=== PATIENT | female | born 1945 | race Caucasian/White ===

== ENCOUNTER 2019-05-16 06:56 | Day surgery (SDC) | payer OTHER, MEDICARE, SELFPAY ==
[2019-05-16] MEDS: PROPARACAINE 0.5% OPHTH SOL 2 DROPS EYE-OP (07:38)
[2019-05-16] MEDS: CATARACT EYE COMPOUND (10 DROPS/SYRINGE) 3 DROPS EYE-OP (07:40)
[2019-05-16 07:41] VITALS: BP 155/71; PULSE 60; RESP 16; TEMP 36.6; O2SAT 100; BMI 33.7
--- NOTE | 2019-05-16 08:08 | PM.PREOP ---
Pre-operative Note Interval Note History & Physical reviewed/Exam performed by Physician: No Changes to H&P: No
--- NOTE | 2019-05-16 08:08 | PM.OP.1 ---
Operative Date/Time/Diagnoses Pre-op diagnosis: Nuclear cataract right eye Procedure & Clinicians Procedure: Cataract Surgery Same procedure as scheduled: Yes Surgeon: Candelario Arzate Anesthesia Type: MAC +/- and Sedation Operative Notes Procedure in detail: Patient brought to the operating suite. Tetracaine drops placed in the right eye. Patient was prepped and draped in sterile manner. Wire lid speculum was placed in the eye. Betadine drops were placed on the eye. This was irrigated. Lidocaine jelly was placed on the eye. A paracentesis port was created with a side-port blade. 0.1 mL 1% preservative free lidocaine was injected into the anterior chamber. The anterior chamber was deepened with viscoelastic. 2.6 mm keratome was used to create a temporal clear corneal incision. Cystotome and Utrata forceps were used to create continuous tear capsulorrhexis. Balanced salt solution was used to hydro dissect the nucleus. The phacoemulsification handpiece was inserted and the nucleus was removed using the stop and chop technique. The irrigation aspiration handpiece was inserted and the remaining cortex was removed. Anterior chamber was deepened with viscoelastic. An Mustafa ZCB00 intraocular lens with a power of 23.5 was injected into the capsular bag. Irrigation aspiration handpiece was inserted and the remaining viscoelastic was removed. Incision was hydrated with balanced salt solution and found to be leak free with pressure with Weck-Minna sponges. 0.1 mL Vigamox injected anterior chamber. 0.3 mL Kenalog 10 mg was injected subconjunctivally. Lid speculum was removed. The patient left the operating room in excellent condition. Complications: none Post-operative Condition: stable Disposition: same day surgery
[2019-05-16] MEDS: TRIAMCINOLONE 50 MG/5 ML VIAL INJ (08:23)
[2019-05-16] MEDS: PHENYLEPHRINE/LIDOCAINE VIAL (OR) 0.2 ML EYE-OP (08:23)
[2019-05-16] MEDS: MOXIFLOXACIN 0.5% OPHTH 60 DROPS/BOTTLE DROPS EYE-BOTH (08:23)
[2019-05-16] MEDS: CHONDROIDTIN/SOD HYALURONATE 1.05 ML SYRINGE INTRAOCULA (08:24)
[2019-05-16] MEDS: BALANCED SALT IRRIG SOLN NO.2 500 ML, EPINEPHrine 1 MG IRR (08:24)
[2019-05-16] MEDS: TETRACAINE 0.5% OPHTH DROPS 4 ML 2 DROPS EYE-OP (08:24)
[2019-05-16] MEDS: LIDOCAINE JELLY 2% 5 ML 1 APPLIC TOP (08:24)
[2019-05-16 08:48] VITALS: BP 120/50; PULSE 57; RESP 16; TEMP 36.6; O2SAT 98
== END 2019-05-16 09:05 ==
LOC: OR 07:00
PROVIDERS: PCP Acupuncturist; Visit Provider Ophthalmology
PROC: (CPT 66984; principal; 2019-05-16 08:15)
DX: H25.11 Age-related nuclear cataract, right eye (principal)
CPT/HCPCS: 66984; J0171; J2250; J3010; J3301

== ENCOUNTER 2019-05-30 07:26 | Day surgery (SDC) | payer OTHER, MEDICARE, SELFPAY ==
[2019-05-30 08:12] VITALS: BP 139/65; PULSE 64; RESP 16; TEMP 36.9; O2SAT 98; BMI 32.3
[2019-05-30] MEDS: CATARACT EYE COMPOUND (10 DROPS/SYRINGE) 3 DROPS EYE-OP (08:21)
[2019-05-30] MEDS: PROPARACAINE 0.5% OPHTH SOL 2 DROPS EYE-OP (08:21)
--- NOTE | 2019-05-30 09:13 | PM.PREOP ---
Pre-operative Note Interval Note History & Physical reviewed/Exam performed by Physician: No Changes to H&P: No
--- NOTE | 2019-05-30 09:13 | PM.OP.1 ---
Operative Date/Time/Diagnoses Pre-op diagnosis: Nuclear Cataract Left eye Post-op diagnosis: same Procedure & Clinicians Surgeon: Candelario rAzate Anesthesia Type: MAC +/- and Sedation Operative Notes Procedure in detail: Patient brought to the operating suite. Tetracaine drops placed in the left eye. Patient was prepped and draped in sterile manner. Wire lid speculum was placed in the eye. Betadine drops were placed on the eye. This was irrigated. Lidocaine jelly was placed on the eye. A paracentesis port was created with a side-port blade. 0.1 mL 1% preservative free lidocaine was injected into the anterior chamber. The anterior chamber was deepened with viscoelastic. 2.6 mm keratome was used to create a temporal clear corneal incision. Cystotome and Utrata forceps were used to create continuous tear capsulorrhexis. Balanced salt solution was used to hydro dissect the nucleus. The phacoemulsification handpiece was inserted and the nucleus was removed using the stop and chop technique. The irrigation aspiration handpiece was inserted and the remaining cortex was removed. Anterior chamber was deepened with viscoelastic. An Mustafa ZCB00 intraocular lens with a power of 24.5 was injected into the capsular bag. Irrigation aspiration handpiece was inserted and the remaining viscoelastic was removed. Incision was hydrated with balanced salt solution and found to be leak free with pressure with Weck-Minna sponges. 0.1 mL Vigamox injected anterior chamber. 0.3 mL Kenalog 10 mg was injected subconjunctivally. Lid speculum was removed. The patient left the operating room in excellent condition. Complications: none Post-operative Condition: stable Disposition: same day surgery
[2019-05-30] MEDS: PHENYLEPHRINE/LIDOCAINE VIAL (OR) 0.2 ML EYE-OP (09:31)
[2019-05-30] MEDS: CHONDROIDTIN/SOD HYALURONATE 1.05 ML SYRINGE INTRAOCULA (09:31)
[2019-05-30] MEDS: TRIAMCINOLONE 50 MG/5 ML VIAL INJ (09:32)
[2019-05-30] MEDS: LIDOCAINE JELLY 2% 5 ML 1 APPLIC TOP (09:32)
[2019-05-30] MEDS: TETRACAINE 0.5% OPHTH DROPS 4 ML 2 DROPS EYE-OP (09:32)
[2019-05-30] MEDS: MOXIFLOXACIN 0.5% OPHTH 60 DROPS/BOTTLE DROPS EYE-BOTH (09:33)
[2019-05-30] MEDS: BALANCED SALT IRRIG SOLN NO.2 500 ML, EPINEPHrine 1 MG IRR (09:33)
[2019-05-30 09:46] VITALS: BP 110/65; PULSE 57; RESP 15; TEMP 36.1; O2SAT 95
--- NOTE | 2019-05-30 10:08 | SUR.PHASEII ---
IV removed, D/C instructions reviewed as well as appt time. Pt dressed independently and was escorted by volunteer via [facility] to ED entrance
== END 2019-05-30 10:08 | disposition home or self-care (01) ==
LOC: OR 07:28
PROVIDERS: PCP Acupuncturist; Visit Provider Ophthalmology
PROC: (CPT 66984; principal; 2019-05-30 09:15)
DX: H25.12 Age-related nuclear cataract, left eye (principal)
CPT/HCPCS: 66984; J0171; J2250; J3010; J3301

== ENCOUNTER 2020-10-25 01:26 | Emergency (ER) | payer OTHER, MEDICARE, SELFPAY ==
[2020-10-25] VITALS (10 sets, daily range): BP systolic 158–219; BP diastolic 67–96; PULSE 51–76; RESP 10–21; TEMP 36.6; O2SAT 94–98
--- NOTE | 2020-10-25 01:37 | ED.ARRPALP ---
HPI - Arrhythmia/Palpitations General Chief Complaint: Arrhythmia/Palpitations Stated Complaint: fast and irregular heartbeat for 2 days Time Seen by Provider: 10/25/20 01:37 Source: patient Mode of arrival: Ambulatory Limitations: no limitations History of Present Illness HPI narrative: The patient was unable to sleep tonight due to palpitations. She denies chest pain, no dyspnea. No diaphoresis. She had no weakness or dizziness. She is having no symptoms upon arrival. She has no history of arrhythmia, history of coronary artery disease. She denies a history of hypertension, diabetes, or hyperlipidemia. She is nonsmoker. She has history of breast cancer with left mastectomy. She has also undergone cataract surgery, and cholecystectomy. She is on no prescription medications. She denies recent illness. Related Data Home Medications Medication Instructions Recorded Confirmed [JUICE PLUS] 1 cap PO QDAY #0 01/26/17 05/16/19 Previous Rx's Medication Instructions Recorded lisinopril 2.5 mg PO DAILY #60 tab 10/25/20 Allergies Allergy/AdvReac Type Severity Reaction Status Date / Time No Known Drug Allergies Allergy Verified 05/16/19 07:35 Review of Systems Constitutional Constitutional: Denies chills, Denies fatigue and Denies headache(s) Eyes Eyes: Denies change in vision ENT Ears, Nose, Mouth, and Throat: Denies dizziness, Denies headache(s) and Denies sore throat Cardiovascular Cardiovascular: Denies chest pain, Denies syncope, Denies rapid heart rate, Reports irregular heart rhythm, Denies dyspnea and Denies dyspnea on exertion Respiratory Respiratory: Denies cough, Denies dyspnea, Denies dyspnea on exertion and Denies wheezing Gastrointestinal Gastrointestinal: Denies abdominal pain, Denies diarrhea, Denies nausea and Denies vomiting Genitourinary Genitourinary: Denies dysuria Genitourinary: Denies dysuria Musculoskeletal Musculoskeletal: Denies back pain Comments: No lower extremity edema Integumentary/Breasts Skin/Breast: Denies lesions and Denies rash Neurologic Neurologic: Denies confusion, Denies dizziness, Denies syncope and Denies headache(s) Psychiatric Psychiatric: Denies confusion and Denies depression Endocrine Endocrine: Denies fatigue Allergic/Immunologic Allergic/Immunologic: Denies wheezing Patient History Medical History (Updated 10/25/20 @ 03:49 by Cricket Pete MD) Breast cancer Surgical History (Updated 10/25/20 @ 02:13 by Cricket Pete MD) S/P cholecystectomy Social History household members: spouse and family Smoking Status: Never smoker Exam Initial Vital Signs Initial Vital Signs: Vital Signs Temperature 97.8 F 10/25/20 01:30 Pulse Rate 76 10/25/20 01:30 Respiratory Rate 20 10/25/20 01:30 Blood Pressure 219/96 H 10/25/20 01:30 Pulse Oximetry 98 10/25/20 01:30 Const General: cooperative and well developed Nutritional Appearance: well nourished HENMD Throat: posterior oropharynx normal Eyes General: appearance normal, both eyes and all related structures Eyelids: eyelids normal Conjunctivae: conjunctivae normal Sclera: sclerae normal Pupils: PERRL EOM: EOM intact bilaterally Neck Neck: No JVD Thyroid: thyroid normal Resp Effort & Inspection: normal respiratory effort and able to speak in complete sentences Auscultation: clear to auscultation bilaterally, no rales, no rhonchi and no wheezes Cardio Rate: regular rate Rhythm: regular rhythm Heart Sounds: S1 normal, S2 normal, no click, no gallops, no murmurs and no rubs Pulses: normal peripheral pulses GI Inspection: non-distended Palpation: soft, no hepatosplenomegaly, No guarding and No tender Auscultation: normal bowel sounds Back/Spine/Pelvis Back: No CVA tenderness Cervical Spine: cervical ROM normal Thoracic/Lumbar Spine: thoracic and lumbar spine normal to inspection Skin General: no rashes or lesions noted Neuro General: patient alert, patient oriented x3, gait normal and no focal motor deficits Speech: speech normal Extrem General: full ROM, no pedal edema and no calf tenderness Psych Appearance: well kempt Mental Status: mental status grossly normal Attitude: cooperative Thought Content: normal and suicidality Judgment: judgment good Course Course Course Narrative: Multiple blood pressure readings renal systolic blood pressure greater than 180. The lowest was 160 systolic prior to treatment. I gave her a dose of lisinopril 2.5 mg, her final BP 158 systolic here in the ER. It is noted she came with palpitations. Increased creatinine is noted, likely associated with hypertension. She is discharged on lisinopril, suggested she follow up with her PCM for continued monitoring of her blood pressure. Orders Ordered: ED Orders 10/25/20 01:57 XR chest 1V Stat EKG-12 Lead Stat 10/25/20 02:20 Complete Blood Count AUTO DIFF Stat Comprehensive Metabolic Panel Stat Magnesium Stat Troponin & CK Cardiac Panel Stat Discontinued Medications Lisinopril (Lisinopril 5 Mg Tablet) 5 mg PO NOW ONE Stop: 10/25/20 03:30 Lisinopril (Lisinopril 5 Mg Tablet) 2.5 mg PO NOW ONE Stop: 10/25/20 03:34 Vital Signs Vital signs: Vital Signs - 8 hr 10/25/20 01:30 10/25/20 02:01 Temperature 97.8 F Pulse Rate 76 54 L Respiratory Rate 20 12 Blood Pressure 219/96 H 170/93 H Pulse Oximetry 98 94 MDM - Arrhythmia/Palpitations Lab Data Result diagrams: 10/25/20 02:20 10/25/20 02:20 Labs: Lab Results 10/25/20 10/25/20 Range/Units 02:20 02:20 WBC 6.2 (4.5-11.0) X10^3/uL RBC 4.18 (4.0-5.2) X10^6/uL Hgb 12.9 (12.0-16.0) g/dL Hct 38.7 (36-46) % MCV 92.5 (80-100) fL MCH 30.9 (26-34) PG MCHC 33.4 (30-36) % RDW 13.2 (11.6-14.8) % Plt Count 234 (150-400) X10^3/uL Neut % (Auto) 43.7 L (50-75) % Lymph % (Auto) 44.6 H (25-40) % [place] % (Auto) 8.6 (3-14) % Eos % (Auto) 2.2 (2-4) % Baso % (Auto) 0.9 (0-2) % Neut # (Auto) 2700 (9044-0101) /uL Lymph # (Auto) 2800 (3340-3404) /uL [place] # (Auto) 500 (0-900) /uL Eos # (Auto) 100 (0-450) /uL Baso # (Auto) 100 (0-100) /uL Sodium 139 (137-145) mmol/L Potassium 4.4 (3.4-5.1) mmol/L Chloride 104 (98-107) mmol/L Carbon Dioxide 29 (22-32) mmol/L BUN 13 (7-17) mg/dL Creatinine 1.14 H (0.52-1.04) mg/dL Estimated GFR 46.3 L (>60) mL/min BUN/Creatinine Ratio 11.4 (6-22) Glucose 128 H (80-110) mg/dL Calcium 10.4 H (8.4-10.2) mg/dL Magnesium 2.0 (1.6-2.3) mg/dL Total Bilirubin 0.3 (0.2-1.3) mg/dL AST 27 (14-36) IU/L ALT 25 (<35) IU/L Alkaline Phosphatase 101 (38-126) U/L Total Creatine Kinase 49 (30-135) U/L CK-MB (CK-2) TNP CK-MB (CK-2) Rel Index TNP Troponin I < 0.012 (0.01-0.034) ng/mL Total Protein 6.8 (6.3-8.2) g/dL Albumin 4.0 (3.5-5.0) g/dL Globulin 2.8 (1.7-4.1) g/dL Albumin/Globulin Ratio 1.4 (1.0-2.8) Imaging Data Chest x-ray: Radiologist's Impresson: Mild bronchial wall thickening. No computer process. ECG Data Attestation: I personally reviewed and interpreted this ECG as follows: (Normal sinus rhythm at 75 beats per minute, with sinus arrhythmia. Normal intervals. No ectopy. No acute ST T wave changes.) Discharge Plan Departure Patient Disposition: Home Clinical Impression: Palpitation, Renal insufficiency Hypertension Qualifiers: Hypertension type: essential hypertension Qualified Code(s): I10 - Essential (primary) hypertension Instructions: Essential Hypertension Activity Restrictions/Additional Instructions: Lisinopril 2.5 mg daily. Monitor your blood pressure daily, keep a record of the readings you obtain. Follow-up with your regular doctor regarding your blood pressure, as well as your kidney function. Return the ER if you develop increasing discomfort in the chest, or difficulty breathing. Prescriptions: New lisinopril 2.5 mg tablet 2.5 mg PO DAILY Qty: 60 RF: 0 No Action [JUICE PLUS] 1 cap PO QDAY Qty: 0 RF: 0 Referrals: Rebecca Stuart ND [Primary Care Provider] -
--- NOTE | 2020-10-25 01:57 | DI.RAD.S_ITS ---
PROCEDURE: XR CHEST 1V INDICATIONS: palpitations TECHNIQUE: One view of the chest was acquired. COMPARISON: [facility], CR, XR CHEST 1 VIEW, 06/01/2018, 13:59. FINDINGS: Surgical changes and devices: None. Lungs and pleura: Lungs are clear. No pleural effusions or pneumothorax. Mediastinum: Mediastinal contours appear normal. Heart size is normal. Bones and chest wall: No suspicious bony lesions. Overlying soft tissues appear unremarkable. IMPRESSION: No acute cardiopulmonary disease process. Dictated by: Katerin Silveira MD, PhD on 10/25/2020 at 8:01 Approved by: Katerin Silveira MD, PhD on 10/25/2020 at 8:02
[2020-10-25 02:31] LABS: Add Manual Diff / Slide Review NO; Basophils Absolute Auto 100 /uL (0-100); Basophils Percent Auto 0.9 % (0-2); Eosinophils Absolute Auto 100 /uL (0-450); Eosinophils Percent Auto 2.2 % (2-4); Hematocrit 38.7 % (36-46); Hemoglobin 12.9 g/dL (12.0-16.0); Lymphocytes Absolute Auto 2800 /uL (1100-4500); Lymphocytes Percent Auto 44.6 % (25-40); Mean Corpuscular HGB Conc 33.4 % (30-36); Mean Corpuscular Hemoglobin 30.9 PG (26-34); Mean Corpuscular Volume 92.5 fL (80-100); Monocytes Absolute Auto 500 /uL (0-900); Monocytes Percent Auto 8.6 % (3-14); Neutrophils Absolute Auto 2700 /uL (1500-7000); Neutrophils Percent Auto 43.7 % (50-75); Platelet Count 234 X10^3/uL (150-400); Red Blood Cell Count 4.18 X10^6/uL (4.0-5.2); Red Cell Distribution Width 13.2 % (11.6-14.8); White Blood Cell Count 6.2 X10^3/uL (4.5-11.0)
[2020-10-25 02:39] LABS: Alanine Aminotransferase 25 IU/L (<35); Albumin Globulin Ratio 1.4 (1.0-2.8); Alkaline Phosphatase 101 U/L (38-126); Aspartate Aminotransferase 27 IU/L (14-36); BUN Creatinine Ratio 11.4 (6-22); Bilirubin Total 0.3 mg/dL (0.2-1.3); Blood Urea Nitrogen 13 mg/dL (7-17); Calcium 10.4 mg/dL (8.4-10.2); Carbon Dioxide 29 mmol/L (22-32); Chloride 104 mmol/L (98-107); Creatine Kinase 49 U/L (30-135); Estimated Glomerular Filt Rate 46.3 mL/min (>60); Globulin 2.8 g/dL (1.7-4.1); Glucose 128 mg/dL (80-110); HEMOLYSIS < 15 (0-50); Potassium 4.4 mmol/L (3.4-5.1); Sodium 139 mmol/L (137-145); Total Protein 6.8 g/dL (6.3-8.2)
[2020-10-25 02:50] LABS: Troponin I < 0.012 ng/mL (0.01-0.034)
[2020-10-25] MEDS: lisinopriL 5 MG TABLET 2.5 MG PO (03:50)
== END 2020-10-25 04:39 | disposition home or self-care (01) ==
PROVIDERS: Emergency Provider Emergency Medicine; PCP Acupuncturist
DX: R00.2 Palpitations (principal); I10 Essential (primary) hypertension; N28.9 Disorder of kidney and ureter, unspecified
CPT/HCPCS: 36415; 71045; 80053; 82550; 83735; 84484; 85025; 93005; 93010; 99284

== ENCOUNTER 2022-11-17 07:36 | Emergency (ER) | payer OTHER, MEDICARE, SELFPAY ==
[2022-11-17] VITALS (9 sets, daily range): BP systolic 144–196; BP diastolic 60–84; PULSE 51–104; RESP 22; TEMP 36.6; O2SAT 95–100; BMI 32.3
--- NOTE | 2022-11-17 07:42 | ED.ABDPAIN ---
HPI - Abdominal Pain General Chief Complaint: Abdominal Pain Stated Complaint: thinks she has appendicitis Time Seen by Provider: 11/17/22 07:40 History of Present Illness HPI narrative: 69-year-old female nonsmoker with history of breast cancer presents for evaluation of right lower quadrant pain. She states that she is been having the pain off and on for about 6 weeks but last night was particularly bad. She states that when the pain is there it is always in the right lower quadrant seems to be made worse by lying flat, she states she is concerned that she has appendicitis. She is had nausea and some episodes of constipation but denies any diarrhea. She denies other provocation, palliation and radiation of her symptoms. She denies any dysuria, frequency or urgency. She denies any change in the caliber of her stool. She is had no change in diet or medications but does mention that she has had less appetite than normal. Her only prior abdominal surgery is gallbladder. She denies dizziness, weakness or lightheadedness. She is had no fever or chills. She denies runny nose, sore throat, cough, chest pain or shortness of breath Related Data Home Medications Medication Instructions Recorded Confirmed [JUICE PLUS] 1 cap PO QDAY ##0 01/26/17 05/16/19 Previous Rx's Medication Instructions Recorded lisinopril 2.5 mg tablet 2.5 mg PO DAILY #60 tabs 10/25/20 Allergies Allergy/AdvReac Type Severity Reaction Status Date / Time No Known Drug Allergies Allergy Verified 11/17/22 07:48 Review of Systems Review of Systems Narrative: GENERAL: Denies chills, fatigue, malaise, fever, sweats. HEENT: Denies sinus pain, ear pain, sore throat, difficulty swallowing, dizziness. RESPIRATORY: Denies dyspnea, cough, wheezing, hemoptysis, sputum. CARDIOVASCULAR: Denies chest pain, palpitations, orthopnea, edema, GASTROINTESTINAL: See HPI : Denies dysuria, frequency, incontinence, hematuria, urinary retention. MUSCULOSKELETAL: denies weakness, joint pain, or bony pain SKIN: Denies rash, skin lesions, or other NEUROLOGIC: Denies weakness, headache, numbness, change in speech, confusion, seizures, incoordination. PSYCHIATRIC: No concerning psychosocial issues. 12 point review of systems is negative except for those stated above Patient History Medical History Breast cancer Surgical History S/P cholecystectomy Social History household members: spouse and family Smoking Status: Never smoker Smoking Status: Never smoker alcohol intake frequency: a few times a month Substance Use Type: does not use Exam Narrative Exam Narrative: GENERAL: [77] year old patient appears stated age. Well-developed patient, in mild distress. HEAD: Atraumatic. Normocephalic. EYES: Pupils equal round and reactive. Extraocular motions intact. No scleral icterus. No injection or drainage. ENT: Nose without bleeding, purulent drainage. Throat without erythema, tonsillar hypertrophy or exudate. Airway patent. NECK: Trachea midline. Non tender CARDIOVASCULAR: Regular rate and rhythm without murmurs, gallops, or rubs. RESPIRATORY: Clear to auscultation. Breath sounds equal bilaterally. No wheezes, rales, or rhonchi. GASTROINTESTINAL: Abdomen soft, mild right lower quadrant tenderness without rebound, nondistended. Bowel sounds present but decreased EXTREMITIES: No edema or joint tenderness. BACK: Nontender without deformity or crepitance. No flank tenderness. NEURO: AOx3. SKIN: No rash or erythema of visible areas Initial Vital Signs Initial Vital Signs: Vital Signs Temperature 97.8 F 11/17/22 07:40 Pulse Rate 68 11/17/22 07:40 Respiratory Rate 22 11/17/22 07:40 Blood Pressure 194/84 H 11/17/22 07:40 Pulse Oximetry 98 11/17/22 07:40 Oxygen Delivery Method Room Air 11/17/22 07:40 Course Orders Ordered: ED Orders 11/17/22 07:50 CT abdomen pelvis w con Stat 11/17/22 08:10 Complete Blood Count AUTO DIFF Stat Comprehensive Metabolic Panel Stat Lactate (Lactic Acid) Stat Lipase Stat Magnesium Stat Discontinued Medications Sodium Chloride (Normal Saline 0.9%) 1,000 mls @ 1,000 mls/hr IV BOLUS ONE Stop: 11/17/22 08:41 Last Admin: 11/17/22 08:27 Dose: 1,000 mls/hr Documented By: HAILEY Ketorolac Tromethamine (Ketorolac 30 Mg/Ml Vial) 10 mg IV NOW ONE Stop: 11/17/22 09:13 Last Admin: 11/17/22 09:38 Dose: 10 mg Documented By: MO Vital Signs Vital signs: Vital Signs - 8 hr 11/17/22 07:40 11/17/22 07:44 11/17/22 07:44 Temperature 97.8 F Pulse Rate 68 67 Respiratory Rate 22 Blood Pressure 194/84 H 194/84 H Pulse Oximetry 98 98 Oxygen Delivery Method Room Air 11/17/22 08:00 11/17/22 08:30 11/17/22 08:30 Temperature Pulse Rate 63 60 Respiratory Rate Blood Pressure 196/82 H Pulse Oximetry 96 96 Oxygen Delivery Method 11/17/22 09:00 11/17/22 09:21 11/17/22 09:21 Temperature Pulse Rate 60 62 Respiratory Rate Blood Pressure 159/71 H Pulse Oximetry 100 Oxygen Delivery Method 11/17/22 09:30 11/17/22 09:31 11/17/22 09:31 Temperature Pulse Rate 51 L 53 L Respiratory Rate Blood Pressure 152/61 H Pulse Oximetry 97 98 Oxygen Delivery Method 11/17/22 10:01 11/17/22 10:01 Temperature Pulse Rate 104 H Respiratory Rate Blood Pressure 144/60 H Pulse Oximetry 95 Oxygen Delivery Method MDM - Abdominal Pain Lab Data 11/17/22 08:10 11/17/22 08:10 Labs: Lab Results 11/17/22 11/17/22 11/17/22 Range/Units 08:10 08:10 08:10 WBC 4.7 (4.5-11.0) X10^3/uL RBC 4.44 (4.0-5.2) X10^6/uL Hgb 13.9 (12.0-16.0) g/dL Hct 40.4 (36-46) % MCV 91.1 (80-100) fL MCH 31.3 (26-34) PG MCHC 34.4 (30-36) % RDW 13.1 (11.6-14.8) % Plt Count 225 (150-400) X10^3/uL Neut % (Auto) 55.0 (50-75) % Lymph % (Auto) 32.9 (25-40) % [place] % (Auto) 9.7 (3-14) % Eos % (Auto) 1.7 L (2-4) % Baso % (Auto) 0.7 (0-2) % Neut # (Auto) 2600 (2318-3330) /uL Lymph # (Auto) 1600 (4227-6815) /uL [place] # (Auto) 500 (0-900) /uL Eos # (Auto) 100 (0-450) /uL Baso # (Auto) 0 (0-100) /uL Sodium 136 L (137-145) mmol/L Potassium 4.5 (3.4-5.1) mmol/L Chloride 106 (98-107) mmol/L Carbon Dioxide 21 L (22-32) mmol/L BUN 14 (7-17) mg/dL Creatinine 0.62 (0.52-1.04) mg/dL Estimated GFR > 60 (>60) mL/min BUN/Creatinine Ratio 22.6 H (6-22) Glucose 113 H (80-110) mg/dL Lactate 1.3 (0.7-2.1) mmol/L Calcium 9.4 (8.4-10.2) mg/dL Magnesium 2.0 (1.6-2.3) mg/dL Total Bilirubin 0.6 (0.2-1.3) mg/dL AST 32 (14-36) IU/L ALT 26 (<35) IU/L Alkaline Phosphatase 94 (38-126) U/L Total Protein 7.8 (6.3-8.2) g/dL Albumin 4.1 (3.5-5.0) g/dL Globulin 3.7 (1.7-4.1) g/dL Albumin/Globulin Ratio 1.1 (1.0-2.8) Lipase 63 (23-300) U/L Point of care testing: Urine Dip Bedside Urine Glucose Negative Bedside Urine Bilirubin - Negative Bedside Urine Ketone - Negative Urine Specific [place] 1.010 Bedside Urine Occult Blood - Negative Bedside Urine pH 6.0 Bedside Urine Protein - Negative Bedside Urine Urobilinogen - Negative Bedside Urine Nitrite - Negative Bedside Urine Leukocytes - Negative Esterase MDM Narrative Medical decision making narrative: CC: 69-year-old female with right lower quadrant pain and concern for appendicitis Complicating co-morbidities: Age, hypertension, breast cancer Data collected from: Patient Medical records reviewed: Prior notes reviewed in our EMR Differential considered, but not limited to: Kidney stone, appendicitis, bowel obstruction versus other Exam documented above, pertinent findings include: Heart rate regular, lungs clear and nonlabored, abdomen soft but tender in the right lower quadrant Lab Test results independently reviewed as above. Pertinent findings: Independently reviewed EKG as above Imaging studies independently reviewed: CT without evidence of appendicitis, obstructive uropathy or other abnormality Treatments: Toradol with some improvement in symptoms Discussion: Patient with many weeks of right lower quadrant pain and reported history of constipation. She is had an otherwise very reassuring history, physical exam without fever or vomiting. She has no elevated white blood cell count or left shift, no fever. Labs without leukocytosis or left shift, imaging without significant abnormal finding. There is no sign of obstruction. Disposition: see below, along with detailed discharge instructions that have been reviewed with patient as well as indications for ED re-evaluation and additional outpatient follow up Discharge Plan Departure Patient Disposition: Home Clinical Impression: Abdominal pain Instructions: DI for Abdominal Pain-Adult Activity Restrictions/Additional Instructions: *You have been diagnosed with [abdominal pain] * As we discussed your history and physical exam as well as labs and imaging are very reassuring. There is no evidence of any severe diagnoses that would require a specific or immediate intervention. *What to do: *Please continue to take your regular medications as directed. *Please follow up with your primary care provider in 2-3 days, call for an appointment. Let them know you were seen in the Emergency Department and that we ask that you be seen in follow up. We will electronically transmit a record of today's note if your PCP is in our system * as we discussed radiology noticed incidental findings of a 1cm mass in your kidneys that will need to be followed by Urology. Please call the office number listed below, let them know you were seen in the emergency department we would like you seen in follow-up. *Please consider a clear liquid diet for the next 24-48 hours and then slowly advance to regular as tolerated. Also, try to avoid alcohol, nicotine, caffeine, spicy, acidic or fatty foods as this may worsen your symptoms. Also, as we discussed, given your complaint of constipation it would seem reasonable to consider wder-sle-phvsudc laxative such as MiraLax daily for the next 1-2 weeks *If you do not have a primary care provider please contact the [facility] Resource line at [phone]. They will ask some questions about your medical history and help get you set up with a doctor in the community. *Return to Emergency Department if you should have any new, worsening or concerning symptoms, such as [fever greater than 101 F, shaking chills, worsening pain, persistent vomiting or other bothersome symptoms] Prescriptions: No Action [JUICE PLUS] 1 cap PO QDAY Qty: 0 lisinopril 2.5 mg tablet 2.5 mg PO DAILY Qty: 60 0RF Referrals: Efe Kendall MD [Physician] - Rebecca Stuart ND [Primary Care Provider] - Stand Alone Forms: Patient Portal/API
--- NOTE | 2022-11-17 07:50 | DI.CT.S_ITS ---
PROCEDURE: CT ABDOMEN PELVIS W CON INDICATIONS: severe RLQ pain, w/nausea TECHNIQUE: After the administration of intravenous contrast, axial sections acquired from the lung bases to the pubic symphysis. Coronal and sagittal reformats were performed. For radiation dose reduction, the following was used: automated exposure control, adjustment of mA and/or kV according to patient size. COMPARISON: None. FINDINGS: Image quality: Excellent. Lung bases: Unremarkable. Heart: No significant findings. ABDOMEN: Liver: Unremarkable. Gallbladder: Surgically absent. Biliary ducts: Unremarkable. Pancreas: Unremarkable. Spleen: Unremarkable. Adrenal Glands: Unremarkable. Kidneys and Ureters: Probable incidental exophytic 1 cm renal cell carcinoma off the lower pole of the right kidney. Reference image 47/2. Probable 1 cm exophytic renal cell carcinoma off the lower pole of the left kidney. Reference coronal image 46/4 and axial image 40/2.. Stomach and Bowel: Small hiatal hernia. Stomach, small bowel loops, and colon are unremarkable. Normal appendix. Peritoneum: No abnormal intraperitoneal fluid. No free air. There are 2 focal nodular density seen in the peritoneal fat in relative close proximity to each other in the right pelvis. On image 60/2 is a 1.4 cm nodule. On image 56/2 is a 1.3 cm nodule. Ventral Wall: No hernias. Abdominal Nodes: No retroperitoneal or mesenteric adenopathy by size criteria. Vessels: Aorta and inferior vena cava are normal in size. PELVIS: Pelvic Organs: Incidental note made of calcified uterine fibroids.. Bladder: Unremarkable. Pelvic Nodes: No enlarged lymph nodes. Miscellaneous: No hernias are seen. Bones: Lumbar degenerative change. No lytic or blastic bony lesions. No compression fractures. IMPRESSION: 1. No evidence of acute abdominal process. Normal appendix. No findings which explain right lower quadrant pain. 2. Bilateral incidental probable 1 cm renal cell carcinomas off the lower poles of the kidneys bilaterally. 3. There are 2 focal nodular densities in the right upper pelvic peritoneal fat, of uncertain etiology, possibly representing enlarged lymph nodes. Cannot exclude peritoneal implants. Comment: Recommend nonemergent referral to urology for the management of the bilateral 1 cm renal masses. Recommend follow-up CT in 2-3 months to document stability of these peritoneal nodules in the right pelvis. Dictated by: Lobito Black M.D. on 11/17/2022 at 9:06 Approved by: Lobito Black M.D. on 11/17/2022 at 9:16
[2022-11-17 08:20] LABS: Add Manual Diff / Slide Review NO; Basophils Absolute Auto 0 /uL (0-100); Basophils Percent Auto 0.7 % (0-2); Eosinophils Absolute Auto 100 /uL (0-450); Eosinophils Percent Auto 1.7 % (2-4); Hematocrit 40.4 % (36-46); Hemoglobin 13.9 g/dL (12.0-16.0); Lymphocytes Absolute Auto 1600 /uL (1100-4500); Lymphocytes Percent Auto 32.9 % (25-40); Mean Corpuscular HGB Conc 34.4 % (30-36); Mean Corpuscular Hemoglobin 31.3 PG (26-34); Mean Corpuscular Volume 91.1 fL (80-100); Monocytes Absolute Auto 500 /uL (0-900); Monocytes Percent Auto 9.7 % (3-14); Neutrophils Absolute Auto 2600 /uL (1500-7000); Platelet Count 225 X10^3/uL (150-400); Red Blood Cell Count 4.44 X10^6/uL (4.0-5.2); Red Cell Distribution Width 13.1 % (11.6-14.8); White Blood Cell Count 4.7 X10^3/uL (4.5-11.0)
[2022-11-17] MEDS: SODIUM CHLORIDE 0.9% 1,000 ML 1000 ML IV (08:27)
[2022-11-17 08:34] LABS: Alanine Aminotransferase 26 IU/L (<35); Albumin 4.1 g/dL (3.5-5.0); Albumin Globulin Ratio 1.1 (1.0-2.8); Alkaline Phosphatase 94 U/L (38-126); Aspartate Aminotransferase 32 IU/L (14-36); BUN Creatinine Ratio 22.6 (6-22); Bilirubin Total 0.6 mg/dL (0.2-1.3); Blood Urea Nitrogen 14 mg/dL (7-17); Calcium 9.4 mg/dL (8.4-10.2); Carbon Dioxide 21 mmol/L (22-32); Chloride 106 mmol/L (98-107); Estimated Glomerular Filt Rate > 60 mL/min (>60); Globulin 3.7 g/dL (1.7-4.1); Glucose 113 mg/dL (80-110); HEMOLYSIS 50 (0-50); Lactate (Lactic Acid) 1.3 mmol/L (0.7-2.1); Lipase 63 U/L (23-300); Potassium 4.5 mmol/L (3.4-5.1); Sodium 136 mmol/L (137-145); Total Protein 7.8 g/dL (6.3-8.2)
[2022-11-17] MEDS: KETOROLAC 30 MG/ML VIAL 10 MG IV (09:38)
== END 2022-11-17 10:33 | disposition home or self-care (01) ==
PROVIDERS: Emergency Provider Emergency Medicine; PCP Acupuncturist
DX: R10.31 Right lower quadrant pain (principal); I10 Essential (primary) hypertension; C50.919 Malignant neoplasm of unspecified site of unspecified female breast
CPT/HCPCS: 36415; 74177; 80053; 81003; 83605; 83690; 83735; 85025; 96374; 99284; J1885; Q9967